=== PATIENT | female | born 1960 | race Caucasian/White ===

== ENCOUNTER 2019-06-16 16:01 | Inpatient (IN) | payer MEDICARE, MEDICAID ==
[~2019-06-16] VITALS: Ht 162.6 cm; Wt 52.9 kg
[~2019-06-16 16:01] MED LIST: ALMACONE 360 M360 ML PO; ARCAPTA IH; MAALOX ADVANCED1 CTB PO; PEPCID AC 10MG10 MG PO; PROAIR HFA0.09 MG/AC IH; SYNTHROID0.088 MG/T PO; TUDORZA IH; TUMS500 MG PO; TYLENOL 325MG325 MG PO; ZYRTEC5 MG PO
[2019-06-16] MEDS ORDERED: PREDNISONE 5MG5 MG PO (17:02)
[2019-06-16] MEDS ORDERED: VITAMIN D 400400 IU PO (17:03)
[2019-06-16] MEDS ORDERED: MAGNESIUM250 M1 PO (17:04)
[2019-06-16 17:09] LABS: BASO % 0.3 % (0.0-2.0); EOS # 0.1 (0.0-0.7); EOS % 1.3 % (0-4.0); GRAN # 5.9 (1.4-6.5); GRAN % 83.6 % (42.2-75.2); HEMATOCRIT 40.7 % (37.0-47.0); HEMOGLOBIN 12.9 g/dl (12.5-16.0); LYMPH # 0.7 (1.2-3.4); LYMPH % 9.5 % (20.0-51.0); MEAN CELL VOLUME 101 fl (80.0-100.0); MEAN CORPUSCULAR HEMOGLOBIN 32 pg (27.0-31.0); MEAN CORPUSCULAR HGB CONC 32 g/dl (33.0-37.0); MEAN PLATELET VOLUME 9.3 fl (7.4-10.4); MONO # 0.4 (0.1-0.6); PLATELET COUNT 236 K/mm3 (130-400); RED BLOOD COUNT 4.03 M/mm3 (4.10-5.30); REDCELL DISTRIBUTION WIDTH-CV 12.8 % (11.5-14.5)
[2019-06-16 17:15] LABS: BILIRUBIN,TOTAL 0.3 mg/dL (0.0-1.0); CALCIUM 9.9 mg/dL (8.4-10.2); CREATININE, serum 0.6 (0.52-1.25); POTASSIUM 4.9 mmol/L (3.4-5.0); TOTAL PROTEIN 7.2 gm/dL (6.4-8.2)
[2019-06-16] MEDS ORDERED: FIORICET 325 MG1 TA1 PO ×2 (18:35→21:34)
[2019-06-16] MEDS ORDERED: ZOFRAN ODT4 MG PO (18:36)
[2019-06-16 19:03] LABS: ARTERIAL BLD GAS O2 SATURATION 94.2 % (92-100); ARTERIAL BLD GAS TCO2 CT 41.2; ARTERIAL BLOOD GAS HCO3 39.1 meq/L (22-26); ARTERIAL BLOOD GAS PO2 68.6 mmHg (80-100); ARTERIAL BLOOD GAS pH 7.37 (7.35-7.45)
[2019-06-16] MEDS ORDERED: YUPELRI175 MCG/3 IH (21:32)
[2019-06-16] MEDS ORDERED: TYLENOL 325MG325 MG PO (21:45)
[2019-06-16] MEDS ORDERED: CBD HEMP OIL (21:49)
[2019-06-16] MEDS ORDERED: ATIVAN 0.50.5 MG/TAB PO (21:55)
[2019-06-16 23:27] VITALS: BP 138/68; PULSE 79; TEMP 98
[2019-06-17] VITALS (7 sets, daily range): BP systolic 107–161; BP diastolic 50–76; PULSE 78–98; TEMP 97.4–98.8
--- NOTE | 2019-06-17 02:08 | NUR ---
Patient arrived from ER to medical floor at approximately 5. Patient sitting up in bed. Respirations were not labored, but gets very SOB and has dyspnea with any exertion. On oxygen at 2 L/min via NC. LS diminished throughout. On telemetry. HRR. Capillary refill less than 3 seconds. Non-tenting skin turgor. BSAx4. Abdomen soft and non-tender. Does complain of burning and discomfort with urination. No edema noted. Patient's med rec completed per patient. Very particular about medications and times of medications. Patient brought own medications. Voices that she understands she can not take any of her home medications. Not allowing medications to be locked up. Patient complained of headache, but only wanted APAP. Also, requested nebulizer treatment. Call placed to Dr. Zarco. Order received for PRN Xopenex and APAP. Given as requested. Patient put on trilogy from home, which patient stated helped a lot with SOB and dyspnea. Refused Lovenox injection. Education provided on medication and purpose. Resting in bed with call light within reach at this time.
--- NOTE | 2019-06-17 04:55 | NUR ---
Patient has not had any complaints of pain or discomfort since receiving PRN APAP. Has been alternating between trilogy and nasal cannula. Currently wearing trilogy. Resting in bed with eyes closed at this time. Call light is within reach.
[2019-06-17 06:11] LABS: BASO % 0.2 % (0.0-2.0); EOS % 0.2 % (0-4.0); GRAN # 4.9 (1.4-6.5); HEMOGLOBIN 11.7 g/dl (12.5-16.0); LYMPH # 0.7 (1.2-3.4); LYMPH % 11.8 % (20.0-51.0); MEAN CELL VOLUME 100 fl (80.0-100.0); MEAN CORPUSCULAR HEMOGLOBIN 32 pg (27.0-31.0); MEAN CORPUSCULAR HGB CONC 32 g/dl (33.0-37.0); MEAN PLATELET VOLUME 9.5 fl (7.4-10.4); MONO # 0.5 (0.1-0.6); MONO % 8.5 % (1.7-9.3); PLATELET COUNT 231 K/mm3 (130-400); REDCELL DISTRIBUTION WIDTH-CV 12.5 % (11.5-14.5)
[2019-06-17 06:16] LABS: HEMATOCRIT 36.8 % (37.0-47.0)
[2019-06-17 06:21] LABS: CREATININE, serum 0.48 (0.52-1.25); POTASSIUM 4.4 mmol/L (3.4-5.0)
--- NOTE | 2019-06-17 10:12 | NUR ---
Pt assessment complete and charted. Pt A&O. Morning medications administered per DEC by Narcisa charge nurse while this nurse was in another room. Pt c/o some nausea "but I'm trying to hold out". Denies anti nausea medication. Pt LAC INT IV patent w/ /no complications. Pt on 2L NC. Denies dizziness. C/O SOB when she is getting up and around and her back is "achy". Requested anothe pillow. States she is "going to put on her trilogy and readjust in bed". Denies other needs at this time. Pt uses call light for bathroom assist.
--- NOTE | 2019-06-17 10:49 | NUR ---
Initial visit; Patient thanked Electronics Engineering Technologist for looking in on her and offering empathy, comfort and prayer. Electronics Engineering Technologist will keep Neha in her prayers.
--- NOTE | 2019-06-17 13:57 | NUR ---
ABIGAIL met with the patient to discuss discharge plan. The patient recently moved to [place] from [place] to be closer to family. She states that she lives alone. Her daughter, Winnie, lives in [place] and her son, Sharif, lives in [place]. She reports needing assistance with ADLs and has a cane, walker, wheelchair, commode, and home oxygen and a trilogy from [facility]. She states that her daughter, [id number] (Amy), and a friend help her with bathing, transportation, and meal prep. She states that she has been to [facility] in the past and also used to have home health. The patient's PCP is Dr. Alexei Louise and she receives her medications at the [facility]. She reports no difficulties obtaining her meds. The patient informed ABIGAIL that she was informed that her Medicaid may be dropped at the end of the month. ABIGAIL consulted financial counselor, Dominic. Dominic plans to meet with the patient. The patient's advanced directives are in EMR. Her daughter, Winnie, is her DPOA-HC. ABIGAIL then discussed OT's recommendation of post-acute rehab vs home with family assistance. The patient reports that she is interested in post-acute rehab at [facility] to get stronger. ABIGAIL then presented and explained the patient choice form to the patient. The patient preferred 1) [facility] 2) [facility] 3) [facility]. Patient choice form signed by the patient and she was provided a copy. ABIGAIL consulted Nessa at [facility]. ABIGAIL contacted and faxed a referral to [facility] and [facility]. SW awaiting their screenings.
--- NOTE | 2019-06-17 14:19 | NUR ---
Pt requesting zofran and fioricet for nausea and migraine. Pt rating pain 8/10 and "wants to get ahead of it". Pt sitting in bed, just received breathing treatment. No other concerns at this time.
--- NOTE | 2019-06-17 14:49 | NUR ---
Shell, at [facility], reports that they are unable to accept the patient; due to her requiring a trilogy. SW to inform the patient and will continue to follow.
--- NOTE | 2019-06-17 19:07 | NUR ---
PT IS VERY AGITATED AND IS FEELING LIKE SHE CAN'T BREATH IS REFUSING TO TAKE ANY OF THE SCHEDULED MEDS. TAKING HER HOME INHALER. WILL NOTIFY NURSE. PT IS FEELING BETTER AFTER TALKING WITH ME AND RELAXING
--- NOTE | 2019-06-17 19:45 | NUR ---
Patient assessed at this time. Alert and oriented x 4, and able to make needs known. Denies having pain and discomfort. Peripheral IV to left AC flushed. Site is without redness, warmth, swelling, and pain. Reports SOB and dypsnea at rest. Encouraged to wear trilogy to help. Asked if wanted PRN Xopenex, and declined. LS diminished throughout. HRR. Cap refill < 3 sec. Non-tent skin turgor. BSAx4. Abdomen soft and non-tender. No edema. Sitting up in bed watching TV at this time. Call light is within reach.
--- NOTE | 2019-06-17 19:54 | NUR ---
Pt requesting tylenol 325. Order is for 650 mg, pt only wants half the dose. This nurse administered 325 mg per request. Pt states she hasn't put on the trilogy because she keeps getting bothered but she did fall asleep for a bit. Pt sitting in bed hunched over. Pt has tolerated food throughout the day with no complaints. Pt refused pepcid per MAR. States she takes 10 mg EC pepcid and resuses to take 10 mg of a 20mg tab. Pt has her own pepcid here. This nurse placed pt med in bin and notified pharmacy. No other concerns at this time.
--- NOTE | 2019-06-18 01:48 | NUR ---
Patient has been alternating between oxygen at 2.5 L/min via NC and trilogy with 2 L oxygen bleed in. Requested Mylanta. Called DIRECTOR OF OPERATIONS, who gave order for one time Maalox. Given to patient as ordered. Reports that APAP earlier was effective. No pain or discomfort at this time. Patient did refuse to take her magnesium. Tablets from hospital had to be cut in half, and she did not want to take a half tab. Took her bottle and put in cabinet for pharmacy to label. Voices no other questions, needs, or concerns. Resting in bed with eyes closed at this time. Call light is within reach.
[2019-06-18 03:41] VITALS: BP 106/43; PULSE 74; TEMP 98.9
--- NOTE | 2019-06-18 06:25 | NUR ---
Patient had no complaints of pain or discomfort since beginning of shift until this time. Given PRN migraine medication, as well as PRN Zofran as requested. Patient refused levothyroxine, stating that she had to have Synthroid or her levels do not stay level. Home med put in bin for pharmacy to label. Continues on IV Solu-medrol per orders. Patient sitting up in bed at this time. Oxygen on at 2.5 L/min via NC. Voices no other questions, needs, or concerns at this time. Call light is within reach.
[2019-06-18 07:20] VITALS: BP 126/53; PULSE 68; TEMP 97.7
[2019-06-18 11:12] VITALS: BP 128/50; PULSE 71; TEMP 98
--- NOTE | 2019-06-18 11:40 | NUR ---
Pt assessment complete and charted. Pt sitting in bed hunched over, pursed lip breathing, on 2L NC. Pt received medications per DEC. Per patient she wore her trilogy last night, slept ok. Denies pain at this time, denies nausea at this time. Received zofran per dec prior to shift change from table games shift manager. Pt denies dizziness, vomiting. Pt voices no other concerns at this time.
[2019-06-18 16:06] VITALS: BP 113/50; PULSE 88; TEMP 98.4
--- NOTE | 2019-06-18 19:05 | NUR ---
Report received from Winnie GREENE. Pt sitting up in bed. Family at bedside. Pt refusing evening dose of Prednisone, stating "that is too much for me to take before bed".
[2019-06-18 19:50] VITALS: BP 117/57; PULSE 81; TEMP 97.5
--- NOTE | 2019-06-18 19:50 | NUR ---
Pt sitting up in bed. Pt is dyspneic at rest. Respirations are shallow and pt has increased dyspnea with talking and activity. O2@2.5L via NC- spo2 is 96%. Lungs are diminished with inspiratory/expiratory wheezes throughout. abdomen soft, nontender. BS+. Pt c/o headache/ L ear pain 01/09. Telemetry in place- NSR. Pt denies further needs at this time. Will continue to monitor.
--- NOTE | 2019-06-18 19:52 | NUR ---
Pt has had uneventful day. Pt refused prednisone this evening.
--- NOTE | 2019-06-18 20:50 | NUR ---
Pt requests TUMs and HS meds. Upon entering with the medication, she stated that the dosage was incorrect. Medication reconcillation reviewed with patient for accuracy. Will call Sofia BRAVO for changes. Pt also refuses Lovenox.
--- NOTE | 2019-06-18 21:05 | NUR ---
Sofia BRAVO called to update patients home medication list. Vitamin D3 and TUMs dosage corrected.
[2019-06-18] MEDS ORDERED: VITAMIN D31000 I1 PO (21:07)
--- NOTE | 2019-06-18 21:12 | NUR ---
Pt given extra TUMs chewable to equal updated dosage. Correct dose of Vitamin D3 also taken, despite patient stating "this is not Vitamin D3, it has to be a capsule".
--- NOTE | 2019-06-18 22:31 | NUR ---
Pt called for PRN Tylenol for headache and ear ache. Pt also requests Mylanta, which was not continued in the hospital. Will call Sofia BRAVO.
--- NOTE | 2019-06-18 22:37 | NUR ---
Sofia BRAVO called to request Mylanta PRN for patient. Orders received.
[2019-06-18 23:20] VITALS: BP 114/47; PULSE 94; TEMP 97.6
[2019-06-19 03:37] VITALS: BP 102/72; PULSE 71; TEMP 98.4
--- NOTE | 2019-06-19 03:53 | NUR ---
Pt c/o migraine headache 04/11 when awoken for VS. PRN Fiorcet given and Zofran per pt request. Telemetry patches also changed. Pt denies further needs.
--- NOTE | 2019-06-19 06:20 | NUR ---
Pt rested periodically throughout the night with migraine x1. She had good relief from Fiorcet and fell back asleep. Pt refuses AM meds again d/t them "being generic".
[2019-06-19 07:02] VITALS: BP 154/63; PULSE 88; TEMP 98.5
--- NOTE | 2019-06-19 08:53 | NUR ---
Pt assessment complete and charted. Pt c/o of severe migraine, "worst it has been since she has been here, fioricet normally works and worked for a little while this morning, but wore off already". Pt refused RT spiriva breathing tx this morning. Pt own medications have been sorted out with pharmacy and hospitalist. Pt is adamant about taking own medications. Pt currently sitting in bed w/ legs crossed, eyes closed, in dark. Morning medications administered, PRN zofran and fioricet adminsitered per DEC. Will monitor for improvement. No other concerns at this time.
[2019-06-19 11:40] VITALS: BP 119/58; PULSE 85; TEMP 98.5
--- NOTE | 2019-06-19 12:27 | NUR ---
SW notes no update to placement, awaiting screening for acceptance.
[2019-06-19 16:00] VITALS: BP 127/45; PULSE 77; TEMP 98.2
--- NOTE | 2019-06-19 16:08 | NUR ---
Pt given imitrex (tolerating well) because pt is stating that fioricet is not "working like it used to". Per pt she is feeling a little better but she is still noted to be sitting in bed, cross legged, hunched over in the dark. Pt refused spiriva breathing tx from RT this morning, per pt she has an allergy to it. Spiriva now placed on allergy list. Pt stated she has other RT meds that she has been taken at bedside. This nurse took meds to be labeled by pharmacy. Pt assisted to bedside commode and back to bed.
--- NOTE | 2019-06-19 18:18 | NUR ---
Pt appears to be doing a little better and anxiety has decreased. Per pt "it doesn't work as quick as fioricet but it seems to work". Rating headache pain a 0/10, back and shoulder pain 2/10, "i think i'm just stiff". Pt ordering dinner, voices no other concerns at this time. Has not requested more zofran or fioricet.
[2019-06-19 20:01] VITALS: BP 120/54; PULSE 89; TEMP 98.2
--- NOTE | 2019-06-19 22:53 | NUR ---
Report received from RAMONA Zhou. Patient sitting in bed. Assessment completed. Vitals within normal limits. Patient states her pain is not bad, "maybe a 1 for my head and 3 for my abdomen". Patient took her Tudorza at bedside, called RT to let them know. Bowels active. IV patent, flushed. Pulses strong. Patient refused her lovenox injection, but requested to recieve her mylanta before bed. Denies any further needs at this time. Call light within reach.
[2019-06-19 23:14] VITALS: BP 118/52; PULSE 88; TEMP 97.8
[2019-06-20 04:14] VITALS: BP 98/37; PULSE 83; TEMP 98
--- NOTE | 2019-06-20 06:07 | NUR ---
Patient had uneventful night. Requested PRN dose of mylanta and TUMS. Denied pain throughout the night. Resting in bed. Call light within reach.
[2019-06-20 06:10] LABS: CALCIUM 8.7 mg/dL (8.4-10.2); CREATININE, serum 0.54 (0.52-1.25); POTASSIUM 3.9 mmol/L (3.4-5.0)
--- NOTE | 2019-06-20 07:00 | NUR ---
Report given to RAMONA Rapp.
[2019-06-20 07:40] VITALS: BP 123/56; PULSE 78; TEMP 97.9
--- NOTE | 2019-06-20 08:06 | NUR ---
Pt assessment complete. Pt sitting in bed stooped over. Pt states she has a migraine, nausea and vision changes at this time. PRN medications administered. Pt reported Fiorcet helps headache more than Imitrex. Pt requesting to take her prednisone once breakfast arrives. Pt does state she's having trouble breathing this am, currently on 2L O2 via NC. Pt's room darkened, cool rag offered but patient declined. No further needs at this time. Call light within reach.
[2019-06-20 11:50] VITALS: BP 117/49; PULSE 80; TEMP 97.5
--- NOTE | 2019-06-20 14:52 | NUR ---
Leslie, at [facility], reports that they can accept the patient for a skilled stay tomorrow, 06/21. Leslie reports that the patient's PCP, Dr. Louise, would want an appointment with the patient before he would sign admit orders. Leslie reports that they can get her appointment tomorrow, 06/21, at [address] Louise; if swing bed does not accept. Nessa, at [facility], reports that she is still awaiting their teams decision. SW to inform the patient and will continue to follow.
[2019-06-20 15:54] VITALS: BP 125/44; PULSE 91; TEMP 98
--- NOTE | 2019-06-20 18:39 | NUR ---
Pt had uneventful day. Continued to have SOB, with pursed lip breathing. O2 sat's >90% on 2L O2 via NC. AMADOR improved through the day with the am dose of Fioricet and Zofran, denied need for further medication through the day. Pt denies further needs, call light within reach.
[2019-06-20 19:35] VITALS: BP 123/59; PULSE 90; TEMP 98.2
--- NOTE | 2019-06-20 20:26 | NUR ---
Report received from RAMONA Rapp. Patient resting in bed. Vitals within normal limits. Alert and oriented. Very chatty. IV patent, flushed. Pedal and radial pulses strong. Lungs clear, but diminished breath sounds. 2 L O2. Patient refused lovenox injection, but did take vitamin D3 and magnesium oxide. Requested to receive her mylanta later after she eats. Denies pain, besides in her ribs. Denies any further needs at this time. Call light within reach.
[2019-06-21 00:02] VITALS: BP 117/55; PULSE 79; TEMP 97.5
[2019-06-21 04:26] VITALS: BP 135/69; PULSE 68; TEMP 97.5
--- NOTE | 2019-06-21 05:48 | NUR ---
Patient had uneventful night. Up to commode two times. Received a bed bath. Patient requested to sit in the chair. PRN doses of mylanta and TUMS given. Call light within reach.
--- NOTE | 2019-06-21 06:41 | NUR ---
Report given to RAMONA Serna.
[2019-06-21 08:05] VITALS: BP 128/60; PULSE 76; TEMP 97.8
--- NOTE | 2019-06-21 09:00 | NUR ---
PT HAS C/O HEADACHE THIS MORING, STATED THAT HEADACHE GAVE HER SOME NAUSEA. PROVIDED PT WITH FIORECET AND ZOFRAN. PT STATED THAT IT WAS HELPING. MARINE CHRONOMETER ASSEMBLER IN WITH PT PLANNING DISCHARGE. PT VERY ANXIOUS/NERVOUS
[2019-06-21] MEDS ORDERED: IMITREX 25MG TA25 MG PO (09:39)
[2019-06-21] MEDS ORDERED: PREDNISONE10 MG PO (09:50)
[2019-06-21] MEDS ORDERED: ATIVAN 0.50.5 MG/TAB PO (09:52)
--- NOTE | 2019-06-21 10:08 | NUR ---
Nessa, at [facility], reports that she still does not have an answer from her clinical team. The patient's daughter (Winnie) and [id number] (Nilda) then contacted ABIGAIL to inquire about the status of referrals and to inform that they would prefer [facility] for the patient, due to them also being able to provide transport. ABIGAIL then followed up with the patient to update on referrals and to inform of her family's preference. The patient reports that she would be agreeable to transferring to [facility] and [facility] feel [facility] The [facility] is to discharge today, 06/21, to [facility] for a skilled stay. Transportation was scheduled for around [id number], via [address]. [facility] plans to take the patient to her PCP appointment with Dr. Louise at 1100 and then will take her [facility]. ABIGAIL presented and explained the IM form to the patient. The patient verbalized understanding, signed, and she was provided a copy. No additional needs at this time.
--- NOTE | 2019-06-21 10:45 | NUR ---
THIS NURSE ASSISTED PT TO GET DRESSED. PT GRAND DAUGHTER BROUGHT HER IN SOME CLOTHING FROM HOME. PT EXIBITING SOME ANXIOUSNESS BUT ATTEMPTS TO COLLECT HERSELF. PT ON 2.5L OF O2. IV AND TELE REMOVED. TRANSPORT TIMMY FROM [facility] TO PROVIDE RIDE, TRANSFER PAPERWORK PROVIDED TO THEM.
--- NOTE | 2019-06-21 11:00 | NUR ---
THIS NURSE AND TRANSPORT PERSONELLE ESCORTED PT RONAN. PT GRAND-DAUGHTER STATED HER MOTHER WILL BE AT FACILITY WHEN SHE ARRIVES THERE. PT BELONGINGS TAKEN TAKEN TO TRANSPORT VAN WITH PT.
== END 2019-06-21 11:00 | DRG 190 ==
LOC: COL.ER 16:01 → MEDICAL 18:05 → COL.ER 18:05 → MEDICAL 21:00
PROVIDERS: Family Medicine; Physician Assistant
DX: J44.1 Chronic obstructive pulmonary disease with (acute) exacerbation (principal); J96.21 Acute and chronic respiratory failure with hypoxia; J96.12 Chronic respiratory failure with hypercapnia; G43.909 Migraine, unspecified, not intractable, without status migrainosus; I10 Essential (primary) hypertension; R53.81 Other malaise; Z99.81 Dependence on supplemental oxygen; E03.9 Hypothyroidism, unspecified; K21.9 Gastro-esophageal reflux disease without esophagitis; Z79.52 Long term (current) use of systemic steroids; Z79.890 Hormone replacement therapy; Z87.891 Personal history of nicotine dependence
CPT/HCPCS: 99223-AI; 99232-AI; 99239; J2405; J2920; J2930; J7512

== ENCOUNTER 2020-02-22 03:44 | Inpatient (IN) | payer MEDICARE, MEDICAID ==
[~2020-02-22] VITALS: Ht 162.6 cm; Wt 64.5 kg
[2020-02-22] VITALS (177 sets, daily range): BP systolic 124–159; BP diastolic 56–88; PULSE 79–114; TEMP 98–98.3; O2SAT 63–100
[~2020-02-22 03:44] MED LIST changes: +ATIVAN 0.50.5 MG/TAB PO; +CBD HEMP OIL; +FIORICET 325 MG1 TA1 PO; +IMITREX 25MG TA25 MG PO; +MAGNESIUM250 M1 PO; +PREDNISONE 5MG5 MG PO; +PREDNISONE10 MG PO; +VITAMIN D 400400 IU PO; +VITAMIN D31000 I1 PO; +YUPELRI175 MCG/3 IH; +ZOFRAN ODT4 MG PO
[2020-02-22 04:35] LABS: BASO % 0.2 % (0.0-2.0); EOS # 0.2 (0.0-0.7); EOS % 1.5 % (0-4.0); GRAN # 9.4 (1.4-6.5); GRAN % 88.7 % (42.2-75.2); HEMATOCRIT 46.2 % (37.0-47.0); HEMOGLOBIN 14.7 g/dl (12.5-16.0); LYMPH # 0.5 (1.2-3.4); LYMPH % 4.8 % (20.0-51.0); MEAN CELL VOLUME 100 fl (80.0-100.0); MEAN CORPUSCULAR HEMOGLOBIN 32 pg (27.0-31.0); MEAN CORPUSCULAR HGB CONC 32 g/dl (33.0-37.0); MONO # 0.5 (0.1-0.6); MONO % 4.5 % (1.7-9.3); PLATELET COUNT 277 K/mm3 (130-400); REDCELL DISTRIBUTION WIDTH-CV 13.1 % (11.5-14.5)
[2020-02-22 04:47] LABS: ANION GAP 7 mmol/L (7-16); BLOOD UREA NITROGEN 25 mg/dL (7-17); CARBON DIOXIDE 33 mmol/L (22-30); CHLORIDE 97 mmol/L (98-107); CREATININE, serum 0.72 (0.52-1.25); GLUCOSE 143 mg/dL (74-106); POTASSIUM 4.4 mmol/L (3.4-5.0); SODIUM 137 mmol/L (137-145)
[2020-02-22 04:48] LABS: ALANINE AMINOTRANSFERASE 19 U/L (4-34); ALBUMIN 4.3 gm/dL (3.5-5.0); ALKALINE PHOSPHATASE 67 U/L (50-136); AST,SGOT 30 U/L (15-37); BILIRUBIN,TOTAL 0.5 mg/dL (0.0-1.0); C-REACTIVE PROTEIN 0.8 mg/dL (0.0-0.9); LIPASE 56 U/L (23-300); TOTAL PROTEIN 7.3 gm/dL (6.4-8.2)
[2020-02-22 04:59] LABS: TROPONIN-I < 0.012 ng/mL (0.000-0.035)
--- NOTE | 2020-02-22 07:12 | NUR ---
0615 - REPORT RECEIVED FROM RAMONA MUNSON.
--- NOTE | 2020-02-22 08:22 | NUR ---
REPORT GIVEN TO RAMONA CABALLERO.
--- NOTE | 2020-02-22 15:47 | NUR ---
SW contacted the patient to discuss discharge plan. The patient lives alone in [place]. She states that her daughter, Winnie Holguin (ph#[phone]), lives nearby her. She reports that she has been having more difficulty ambulating lately and has just been getting up to use her bedside commode. She has a cane, walker, and wheelchair. She has private duty services from [facility] in [place]. She states that they come in and help her in the morning and evening and make her meals. The patient's PCP is Dr. Anderson Contreras and she receives her medications at [facility]. She reports no difficulties obtaining her meds. The patient's DPOA-HC is in EMR. Her DPOA-HC is her daughter, Winnie Holguin, and Alec Rondon. Due to the patient having more difficulty ambulating and getting around lately, SW discussed post-acute rehab. The patient reports that she has been to [facility] in the past and would be agreeable to post-acute rehab again. The patient chose 1) [facility] 2) [place] [facility]. ABIGAIL contacted and faxed a referral to both facilities. The patient was a PUI when she came through the ED. Leslie at [facility] reports that they cannot admit a patient there without a negative COVID test. ABIGAIL notified the Edie QUINONES. A COVID-19 test was ordered. SW awaiting the facility screens. ABIGAIL contacted and updated the patient's daughter, Winnie. SW to continue to follow.
--- NOTE | 2020-02-22 18:21 | NUR ---
Pt had a very busy day. Pt requires a lot of attention. She has been up and down on O2 saturations. Pt requires Trilogy whenever sleeping, and as long as she'll tolerate it. She has a bedside commode, and will use it with assistance. Pt is quite demanding. Pt is a retired RN. She keeps notes of ALL care in her journal at bedside. Pt uses call light frequently, and it is at bedside. Pt is currently on 3L O2 via NC.
[2020-02-23] VITALS (673 sets, daily range): BP systolic 100–157; BP diastolic 65–92; PULSE 73–81; TEMP 97.9–98.7; O2SAT 53–100
[2020-02-23 07:05] LABS: BASO % 0.3 % (0.0-2.0); EOS # 0.1 (0.0-0.7); GRAN # 5.5 (1.4-6.5); GRAN % 76.4 % (42.2-75.2); HEMATOCRIT 39.6 % (37.0-47.0); LYMPH # 0.8 (1.2-3.4); LYMPH % 11.7 % (20.0-51.0); MEAN CELL VOLUME 101 fl (80.0-100.0); MEAN CORPUSCULAR HEMOGLOBIN 32 pg (27.0-31.0); MEAN CORPUSCULAR HGB CONC 32 g/dl (33.0-37.0); MEAN PLATELET VOLUME 9.2 fl (7.4-10.4); MONO # 0.7 (0.1-0.6); MONO % 9.2 % (1.7-9.3); PLATELET COUNT 238 K/mm3 (130-400); RED BLOOD COUNT 3.94 M/mm3 (4.10-5.30); REDCELL DISTRIBUTION WIDTH-CV 13.1 % (11.5-14.5)
[2020-02-23 07:07] LABS: HEMOGLOBIN 12.6 g/dl (12.5-16.0)
--- NOTE | 2020-02-23 07:23 | NUR ---
report given to RAMONA Pool.
[2020-02-23 07:29] LABS: CALCIUM 8.5 mg/dL (8.4-10.2); CREATININE, serum 0.59 (0.52-1.25)
--- NOTE | 2020-02-23 08:20 | NUR ---
Patient sitting up in bed resting. Alert and oriented x 3. Assessment complete. Patient on 2L of o2. Denies further needs at this time.
[2020-02-23 08:35] LABS: COLLECTION METHOD CLEAN CATCH
[2020-02-23 08:39] LABS: MUCOUS Present /lpf; PH 6 (5-8); SQUAMOUS EPITHELIAL 0-2 /hpf; URINE APPEARANCE Clear; URINE BACTERIA None Seen /hpf; URINE BILIRUBIN Negative (NEGATIVE); URINE BLOOD 2+ (NEGATIVE); URINE COLOR Yellow; URINE GLUCOSE Negative (NEGATIVE); URINE KETONE Negative (NEGATIVE); URINE LEUKOCYTE ESTERASE Negative (NEGATIVE); URINE NITRATE Negative (NEGATIVE); URINE PROTEIN(semi-quant) Negative (NEGATIVE); URINE UROBILINOGEN Negative (NEGATIVE)
--- NOTE | 2020-02-23 14:05 | NUR ---
Patient called out to nurses station, states she has a migraine, medications given per orders.
--- NOTE | 2020-02-23 14:07 | NUR ---
ABIGAIL contacted and faxed updates to [facility] and [place] [facility]. COVID-19 results are still pending. SW to continue to follow.
--- NOTE | 2020-02-23 18:21 | NUR ---
Patient has done well throughout the day. Minimal needs. Remains on 2L of oxygen via nasal cannula when not on trilogy, however requires increase in o2 when out of bed. Denies pain at this time. Denies further needs at this time. Will report off to shift supervisor rn.
--- NOTE | 2020-02-23 22:15 | NUR ---
COVID swab resulted as negative. SHELLY West was notified and asked if precautions can be taken off and she said yes.
[2020-02-24] VITALS (794 sets, daily range): BP systolic 107–139; BP diastolic 58–94; PULSE 66–87; TEMP 97.5–98; O2SAT 66–100
[2020-02-24 05:28] LABS: BASO % 0.3 % (0.0-2.0); EOS # 0.3 (0.0-0.7); EOS % 4.7 % (0-4.0); GRAN # 4.6 (1.4-6.5); GRAN % 63.5 % (42.2-75.2); HEMATOCRIT 42.2 % (37.0-47.0); HEMOGLOBIN 13.5 g/dl (12.5-16.0); LYMPH # 1.6 (1.2-3.4); LYMPH % 22.1 % (20.0-51.0); MEAN CELL VOLUME 103 fl (80.0-100.0); MEAN CORPUSCULAR HEMOGLOBIN 33 pg (27.0-31.0); MEAN CORPUSCULAR HGB CONC 32 g/dl (33.0-37.0); MONO # 0.7 (0.1-0.6); MONO % 9.3 % (1.7-9.3); PLATELET COUNT 238 K/mm3 (130-400); RED BLOOD COUNT 4.11 M/mm3 (4.10-5.30); REDCELL DISTRIBUTION WIDTH-CV 13.2 % (11.5-14.5)
[2020-02-24 05:42] LABS: CALCIUM 8.9 mg/dL (8.4-10.2); CREATININE, serum 0.69 (0.52-1.25)
--- NOTE | 2020-02-24 08:00 | NUR ---
Assessment completed. Pt in contact isolation for norovirus. Pt A/Ox3. c/o AMADOR at this time, tylenol given per pt request. Pt sitting up in bed. On 2.5L/NC, pursed lip breathing. O2 sats above 90%. HR SR on monitor. Abd soft, Bowel sounds present x4 quad. No edema noted in BLE. Breakfast tray set up for pt. Discussed plan of care r/t contact isolation, medications, dr hood, and possible transfer to floor or nursing facility today. Pt verbalized understanding. Pt states her dtr will bring in her home medications later today. Call light in reach.
--- NOTE | 2020-02-24 10:33 | NUR ---
The patient's COVID-19 results came back negative. SW contacted and faxed the results as well as updates to [facility] and [facility]. Leslie, at [facility], reports that they would not be able to meet the patient's needs at this time and are unable to accept. Eugenio, at [facility], reports that they are still reviewing the referral. SW contacted and updated the patient's daughter, Winnie. SW to continue to follow.
--- NOTE | 2020-02-24 10:56 | NUR ---
Eugenio, at [facility], reports that they no longer have a female bed available. ABIGAIL contacted and updated the patient's daughter, Winnie. She was agreeable to ABIGAIL sending referrals to [facility], and [facility]. ABIGAIL contacted and faxed referrals to [facility] and [facility]. ABIGAIL attempted to contact Yudi at [facility]. ABIGAIL left her a voicemail.
--- NOTE | 2020-02-24 12:10 | NUR ---
Pt resting in bed. Lunch tray set up. Pt states she will eat later. Call light in reach.
[2020-02-24] MEDS ORDERED: TUDORZA IH (12:29)
--- NOTE | 2020-02-24 14:18 | NUR ---
Pharmacist Jerrica in pt's room discussing home medications pt's dtr brought in.
--- NOTE | 2020-02-24 15:45 | NUR ---
Shell at [facility] and Yudi at [facility] both report that they are unable to accept the patient. Juan, at [facility], reports that they are able to accept the patient for skilled stay tomorrow with transportation at 1300. ABIGAIL contacted and updated the patient's daughter, Winnie. Winnie is agreeable with the patient going to [facility]. ABIGAIL contacted and updated the patient. The patient reports that she is unsure if she wants to go to [facility] and would like to speak to her daughter and son about this first. ABIGAIL then followed up with the patient. After speaking to her children, the patient is agreeable with going to [facility]. ABIGAIL read the IM form outloud to the patient. The patient verbalized understanding and gave ABIGAIL approval to sign the form on her behalf. ABIGAIL notified the Beatrice QUINONES. SW to continue to follow.
--- NOTE | 2020-02-24 19:29 | NUR ---
Report given to RAMONA Ramsay.
--- NOTE | 2020-02-24 21:59 | NUR ---
retrieved pt's TUMS at pharmacy per pt's request.
[2020-02-25] VITALS (288 sets, daily range): BP systolic 96–124; BP diastolic 48–73; PULSE 69–81; TEMP 97.6–98.3; O2SAT 67–100
--- NOTE | 2020-02-25 07:26 | NUR ---
report given to RAMONA Sage.
--- NOTE | 2020-02-25 08:45 | NUR ---
Patient is awake and alert in bed, is sitting up with legs crossed. She is noted to be dyspec, oxygen is being administered at 2.5L via NC. States she likes to have oxygen turned up to 3L when getting up to commode and to stay there until she recovers. She was assisted to the commode and transferred well, only needing assistance with telemetry wires. Does not currently have pain. Call light and personal items are within reach.
[2020-02-25] MEDS ORDERED: PREDNISONE 5MG5 MG PO (11:27)
--- NOTE | 2020-02-25 15:36 | NUR ---
Patient discharged to [facility] at 1330. All personal items were collected and carried to facility transportation. Facility did provide wheelchair and oxygen. Was assisted to vehicle by nursing staff. Report called to Cha.
== END 2020-02-25 13:30 | DRG 392 ==
LOC: COL.ER 03:44 → EU 05:38
PROVIDERS: Emergency Medicine; Physician Assistant; ADMIT Student in an Organized Health Care Education/Training Program
DX: A08.11 Acute gastroenteropathy due to Norwalk agent (principal); J96.12 Chronic respiratory failure with hypercapnia; E87.3 Alkalosis; J44.9 Chronic obstructive pulmonary disease, unspecified; E86.0 Dehydration; E03.9 Hypothyroidism, unspecified; I10 Essential (primary) hypertension; R31.9 Hematuria, unspecified; Z87.891 Personal history of nicotine dependence; Z03.818 Encounter for observation for suspected exposure to other biological agents ruled out
CPT/HCPCS: OP; 99232-AI; 99239; C9113; G0378; J1200; J2060; J2405; J2765; J2930; J3475; J3480; J7030; J7512

== ENCOUNTER → 2020-03-09 | Outpatient (CLI) | payer MEDICARE, MEDICAID | LOC: ZCOL.LAB 18:23 | DX: A08.11 Acute gastroenteropathy due to Norwalk agent (principal) ==

== ENCOUNTER → 2020-03-09 | Outpatient (CLI) | payer MEDICARE, MEDICAID | LOC: ZCOL.LAB 16:47 | DX: Z01.89 Encounter for other specified special examinations (principal) ==

== ENCOUNTER → 2021-10-28 | Outpatient (CLI) | payer MEDICARE, MEDICAID | LOC: COL.RAD 11:45 | DX: J44.9 Chronic obstructive pulmonary disease, unspecified (principal); J43.2 Centrilobular emphysema | CPT/HCPCS: A9540 ==